=== PATIENT | male | born 1990 | race American Indian/Alaskan Native ===

== ENCOUNTER 2021-07-30 07:59 | Emergency (ER) | payer SELFPAY ==
[2021-07-30] MEDS ORDERED: KETOROLAC 10 MG TAB PO NR (09:10)
[2021-07-30] MEDS ORDERED: CYCLOBENZAPRINE 10 MG TAB PO NR (09:10)
[2021-07-30] MEDS ORDERED: oxyCODONE /ACETAMINOPHEN 5-325MG TAB PO NR (09:10)
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
[2021-07-30 10:38] VITALS: BP 146/78
== END 2021-07-30 10:37 | disposition home or self-care (01) ==
LOC: ED 07:59
DX: R07.89 Other chest pain (principal); G93.9 Disorder of brain, unspecified; V89.2XXA Person injured in unspecified motor-vehicle accident, traffic, initial encounter; Y93.89 Activity, other specified; Y92.89 Other specified places as the place of occurrence of the external cause; Y99.8 Other external cause status
CPT/HCPCS: 70450; 71250; 72125; 99283